=== PATIENT | female | born 1945 | race Two or more races ===

== ENCOUNTER 2021-11-26 14:46 | Outpatient (REF) | payer MEDICAID, SELFPAY ==
[2021-11-29 02:03] LABS: TS Negative Control Passed; TS Panel A 0; TS Panel B 2; TS Positive Control Passed; TSpotTB Negative (Negative)
== END 2021-11-26 14:47 | disposition home or self-care (01) ==
LOC: HO.LAB 14:46
PROVIDERS: PCP Internal Medicine; Visit Provider Internal Medicine
DX: Z01.83 Encounter for blood typing (principal); Z11.1 Encounter for screening for respiratory tuberculosis
CPT/HCPCS: 36415; 86481

== ENCOUNTER 2023-02-17 12:24 | Outpatient (REF) | payer OTHER, SELFPAY ==
[2023-02-17 13:41] LABS: Alanine Aminotransferase 54 U/L (0-31); Albumin Level 4.2 g/dL (3.5-5.0); Alkaline Phosphatase 151 U/L (39-117); Anion Gap 14 (12-20); Aspartate Amino Transferase 18 U/L (5-31); Bilirubin Total 0.5 mg/dL (0.0-1.0); Blood Urea Nitrogen 23 mg/dL (9-16); Calcium 9.5 mg/dL (8.4-10.2); Carbon Dioxide 24 mmol/L (22-29); Chloride 102 mmol/L (96-108); Estimated Glomerular Filt Rate 50; Gamma Glutamyl Transpeptidase 245 U/L (7-33); Glucose Random 352 mg/dL (60-115); Potassium 5.6 mmol/L (3.3-5.1); Sodium 134 mmol/L (135-145); Total Protein 8.1 g/dL (6.5-8.0)
[2023-02-17 13:45] LABS: Ferritin 55 ng/mL (10-250)
[2023-02-18 07:25] LABS: HBS Num1 0.23 mIU/mL (0-7.99); HBsAGNum1 0.25 S/CO (0.00-0.99); Hepatitis A Antibody IgM 0.41 Index (0-0.79); Hepatitis B Core Antibody Nonreactive (Nonreactive); Hepatitis B Surface Antigen Negative (Negative); ~HepC Num1 0.11 S/CO (0.00-0.79); ~Hepatitis A Antibody IgM Nonreactive (Nonreactive); ~Hepatitis B Surface Antibody NONREACTIVE (Nonreactive); ~Hepatitis C Antibody Nonreactive (Nonreactive)
[2023-02-19 13:59] LABS: Immunoglobulin G 1435 mg/dL (600-1540)
[2023-02-22 12:38] LABS: Smooth Muscle Antibody <20 U (<20)
[2023-02-25 14:05] LABS: Anti Nuclear Antibody Screen POSITIVE (NEGATIVE)
[2023-02-26 08:32] LABS: Mitochondrial Antibodies POSITIVE (NEGATIVE)
[2023-02-26 08:48] LABS: Mitochondrial Ab Titer 1:20 titer (<1:20)
== END 2023-02-17 12:25 | disposition home or self-care (01) ==
LOC: HO.10HDL 12:24
PROVIDERS: Visit Provider Internal Medicine
DX: E03.9 Hypothyroidism, unspecified (principal); E11.65 Type 2 diabetes mellitus with hyperglycemia; R74.01 Elevation of levels of liver transaminase levels; R74.8 Abnormal levels of other serum enzymes
CPT/HCPCS: 36415; 80053; 82728; 82784; 82977; 86015; 86038; 86039; 86381; 86704; 86706; 86709; 86803; 87340

== ENCOUNTER 2023-08-25 15:01 | Outpatient (REF) | payer OTHER, SELFPAY ==
[2023-08-25 16:43] LABS: Estimated Average Glucose 252 mg/dL; Hemoglobin A1c % 10.4 % (<6.0)
[2023-08-25 17:20] LABS: Alanine Aminotransferase 16 U/L (0-31); Albumin Level 4.2 g/dL (3.5-5.0); Alkaline Phosphatase 75 U/L (39-117); Anion Gap 14 (12-20); Aspartate Amino Transferase 13 U/L (5-31); Bilirubin Total 0.2 mg/dL (0.0-1.0); Blood Urea Nitrogen 19 mg/dL (9-16); Carbon Dioxide 23 mmol/L (22-29); Chloride 107 mmol/L (96-108); Cholesterol 126 mg/dL (<200); Estimated Glomerular Filt Rate > 60; Glucose Random 176 mg/dL (60-115); HDL Cholesterol 65 mg/dL (>40); LDL Cholesterol Calculated 47 mg/dL (<100); Potassium 4.5 mmol/L (3.3-5.1); Sodium 139 mmol/L (135-145); Total Protein 7.5 g/dL (6.5-8.0); Triglycerides 73 mg/dL (<150)
[2023-08-25 17:23] LABS: Creatinine Urine 70.61 mg/dL; Microalbum/Creatinine Ratio Ur 33.9 ug/mg cr (<30)
[2023-08-25 17:38] LABS: Thyroid Stimulating Hormone 1.08 uIU/mL (0.32-4.0)
[2023-08-25 17:51] LABS: Folate 15.3 ng/mL (> or = 4.0); Vitamin B12 989 pg/mL (200-900)
[2023-08-27 21:58] LABS: TS Negative Control Passed; TS Panel A 1; TS Panel B 3; TS Positive Control Passed; TSpotTB Negative (Negative)
== END 2023-08-25 15:02 | disposition home or self-care (01) ==
LOC: HO.LAB 15:01
PROVIDERS: PCP Internal Medicine; Visit Provider Internal Medicine
DX: E03.9 Hypothyroidism, unspecified (principal); E11.65 Type 2 diabetes mellitus with hyperglycemia; E78.00 Pure hypercholesterolemia, unspecified; R74.01 Elevation of levels of liver transaminase levels
CPT/HCPCS: 36415; 80053; 80061; 82043; 82570; 82607; 82746; 83036; 84443; 86481